=== PATIENT | female | born 1985 | race Caucasian/White ===

== ENCOUNTER 2016-10-20 10:33 | Emergency (ER) | payer BC ==
[2016-10-20 10:50] VITALS: BP 150/106
[2016-10-20] MEDS ORDERED: Sodium Chloride 0.9% 10 ML Syringe FLUSH PRN (11:17)
[2016-10-20] MEDS ORDERED: Ondansetron 4 MG/2 ML SDV IVPUSH ONE (11:17)
[2016-10-20] MEDS ORDERED: Sodium Chloride 0.9% 1,000 ML IV STA (11:17)
--- NOTE | 2016-10-20 12:49 | EDM.PDOC ---
ED HPI GENERAL MEDICAL PROBLEM - General Chief Complaint: General Stated Complaint: POSS. JAUNDICE- SENT BY CLINIC Time Seen by Provider: 10/20/16 10:53 Source of Information: Reports: Patient History Limitations: Reports: No Limitations - History of Present Illness INITIAL COMMENTS - FREE TEXT/NARRATIVE: The patient presents with jaundice. She has not been feeling well for about 2 weeks. She had no energy, slight cough, sore throat and maybe a fever. She was seen in the clinic on Friday and she was checked for strep. Strep was negative. They did not do mono at that time. She came back to the walk in clinic at [place] today because she noticed bright yellow urine, yellow stool and jaundice. They did labs and her liver enzymes were all elevated and her total bili. She was sent over here for further work up. She denies pain now. She has no headache, sore throat, chest pain, shortness of breath, abdominal pain, nausea or vomiting. She has no dysuria. She has no medical problems. Onset: Gradual Duration: Week(s): (2) Severity: Moderate Improves with: Reports: None Worsens with: Reports: None Associated Symptoms: Reports: No Other Symptoms - Related Data Allergies Allergy/AdvReac Type Severity Reaction Status Date / Time Penicillins Allergy Rash Verified 10/20/16 10:50 Home Meds: Home Meds Norgestimate-Ethinyl Estradiol [Tri-Linyah Tablet] 10/20/16 [History] Past Medical History - Past Health History Medical/Surgical History: Denies Medical/Surgical History Social & Family History - Tobacco Use Smoking Status *Q: Unknown Ever Smoked ED ROS GENERAL - Review of Systems Review Of Systems: See Below Constitutional: Reports: No Symptoms HEENT: Reports: No Symptoms Respiratory: Reports: No Symptoms Cardiovascular: Reports: No Symptoms Endocrine: Reports: No Symptoms GI/Abdominal: Reports: No Symptoms : Reports: No Symptoms Musculoskeletal: Reports: No Symptoms Skin: Reports: Jaundice ED EXAM, GENERAL - Physical Exam Exam: See Below Exam Limited By: No Limitations General Appearance: Alert, No Apparent Distress Eye Exam: Bilateral Eye: Other (slight scleral icterus) Ears: Normal External Exam Nose: Normal Inspection Throat/Mouth: Normal Inspection Head: Atraumatic, Normocephalic Neck: Normal Inspection Respiratory/Chest: No Respiratory Distress, Lungs Clear, Normal Breath Sounds Cardiovascular: Regular Rate, Rhythm, No Edema, No Murmur GI/Abdominal: Soft, Non-Tender, No Organomegaly, No Mass Back Exam: Normal Inspection Extremities: Normal Inspection Neurological: Alert, Oriented Course - Vital Signs Last Recorded V/S: Last Vital Signs Temp 98.5 F 10/20/16 10:47 Pulse 92 10/20/16 10:47 Resp 18 10/20/16 10:47 BP 150/106 H 10/20/16 10:47 Pulse Ox 98 10/20/16 10:47 - Orders/Labs/Meds Orders: Active Orders 24 hr Category Date Time Status Peripheral IV Care [RC] . DIRECTED Care 10/20/16 11:17 Active Abdomen Ltd [US] Stat Exams 10/20/16 11:18 Taken Sodium Chloride 0.9% [Saline Flush] Med 10/20/16 11:17 Active 10 ml FLUSH ASDIRECTED PRN ED Antiemetic Medication Reflex [OM.PC] Stat Oth 10/20/16 11:17 Ordered Peripheral IV Insertion Adult [OM.PC] Stat Oth 10/20/16 11:17 Ordered Medication Orders Sodium Chloride (Saline Flush) 10 ml FLUSH ASDIRECTED PRN PRN Reason: Keep Vein Open Last Admin: 10/20/16 11:51 Dose: 10 ml Labs: Laboratory Tests 10/20/16 Range/Units 11:30 Monoscreen Positive H (NEGATIVE) Meds: Medications Generic Name Dose Route Start Last Admin Trade Name Freq PRN Reason Stop Dose Admin Sodium Chloride 10 ml 10/20/16 11:17 10/20/16 11:51 Saline Flush FLUSH 10 ml ASDIRECTED PRN Administration Keep Vein Open Discontinued Medications Generic Name Dose Route Start Last Admin Trade Name Freq PRN Reason Stop Dose Admin Sodium Chloride 1,000 mls @ 1,000 mls/hr 10/20/16 11:17 10/20/16 11:47 Normal Saline IV 10/20/16 12:16 1,000 mls/hr .BOLUS STA Administration Ondansetron HCl 4 mg 10/20/16 11:17 10/20/16 11:52 Zofran IVPUSH 10/20/16 11:18 4 mg ONETIME ONE Administration - Re-Assessments/Exams Free Text/Narrative Re-Assessment/Exam: 10/20/16 12:54 I ordered an IV NS, mono and an US of her abdomen. Her WBC was elevated at 16.5. Her Hgb was normal at 14.8. Her Platelets were normal at 164. Her direct bili was high at 5.5. Her Alk Phos was elevated at 905. Her AST was elevated to 208. Her ALT was elevated at 461. Her total bili was elevated to 6.1. Her UA shows large amount of bilirubin. I am waiting for the US. 10/20/16 14:15 The US shows hepatomegaly at 17.3cm. Possible gallbladder polyp measuring 2cm. Smaller polyp measruing 1.1cm. Multiple periportal lymph nodes. Largest at the pancreatic head measures 18 X 6 X 18mm. She feels better. I will discharge her home with symptomatic treatment. I will have her follow up with [facility] this next week. Departure - Departure Time of Disposition: 14:20 Disposition: Home, Self-Care 01 Condition: good Clinical Impression: Mononucleosis, infectious, with hepatitis, Jaundice, Weakness generalized - Discharge Information Referrals: [facility] SUBSTATION MANAGER [ED Midlevel Provider] - 3 Days Forms: ED Department Discharge Additional Instructions: Drink plenty of fluids. Rest. Do not take tylenol for any pain. You can take motrin or aleve. Follow up with [facility] Jean or one of her partners in 3 days. Please return if you are worse. - My Orders Last 24 Hours: My Active Orders 10/20/16 11:17 Peripheral IV Care [RC] . DIRECTED Sodium Chloride 0.9% [Saline Flush] 10 ml FLUSH ASDIRECTED PRN ED Antiemetic Medication Reflex [OM.PC] Stat Peripheral IV Insertion Adult [OM.PC] Stat 10/20/16 11:18 Abdomen Ltd [US] Stat - Assessment/Plan Last 24 Hours: My Active Orders 10/20/16 11:17 Peripheral IV Care [RC] . DIRECTED Sodium Chloride 0.9% [Saline Flush] 10 ml FLUSH ASDIRECTED PRN ED Antiemetic Medication Reflex [OM.PC] Stat Peripheral IV Insertion Adult [OM.PC] Stat 10/20/16 11:18 Abdomen Ltd [US] Stat
--- NOTE | 2016-10-21 11:14 | US ---
Limited abdominal ultrasound: Multiple real-time images were obtained of the upper right abdomen. Liver shows no focal parenchymal abnormality. Right kidney shows no hydronephrosis or mass and has a length of 11.8 cm. Gallbladder is not well distended. Soft tissue abnormalities are seen within the gallbladder in 2 locations measuring 2.0 cm and 1.1 cm most likely representing gallbladder polyps. Pancreas appears within normal limits. Several slightly hypoechoic lymph nodes are seen within the periportal region measuring 1.8 cm. Impression: 1. Two soft tissue abnormalities within the gallbladder most likely due to large gallbladder polyps. No shadowing gallstones, gallbladder wall thickening or biliary duct dilatation is seen. 2. Several upper abdominal lymph nodes most likely representing old inflammatory enlargement. 3. No additional abnormality is seen. Note: Follow-up right upper quadrant abdominal ultrasound is recommended in 6 months with adequate fasting to further evaluate gallbladder findings for stability. Diagnostic code #9 Agree with preliminary report issued by [facility] ([facility] preliminary report dictated on 10/20/16, 2:47 PM Central Time)
== END 2016-10-20 14:35 | disposition home or self-care (01) ==
LOC: JD.ED 10:33
DX: B27.90 Infectious mononucleosis, unspecified without complication (principal); K75.9 Inflammatory liver disease, unspecified; R53.1 Weakness; Z88.0 Allergy status to penicillin
CPT/HCPCS: 36415; 76705; 86308; 96361; 96374; 99285; J2405; J7040; J7050; 99284

== ENCOUNTER 2023-12-01 18:08 | Emergency (ER) | payer BC ==
[2023-12-01] MEDS ORDERED: Sodium Chloride 0.9% 10 ML Syringe FLUSH PRN (18:35)
[2023-12-01 18:40] LABS: BASOPHILS ABSOLUTE AUTO 0.1 K/mm3 (0.0-0.2); BASOPHILS PERCENT AUTO 0.5 % (0.0-1.0); EOSINOPHILS ABSOLUTE AUTO 0.3 K/mm3 (0.0-0.4); EOSINOPHILS PERCENT AUTO 2.3 % (0.0-6.0); HEMATOCRIT 46.4 % (37.0-47.0); HEMOGLOBIN 15.5 gm/dl (12.0-16.0); IMMATURE GRAN ABSOLUTE AUTO 0.04 K/mm3 (0.00-0.05); IMMATURE GRAN PERCENT AUTO 0.3 % (0.0-0.4); LYMPHOCYTES ABSOLUTE AUTO 3.4 K/mm3 (1.0-4.8); MEAN CORPUSCULAR HEMOGLOBIN 30.2 pg (28.0-32.0); MEAN CORPUSCULAR HGB CONC 33.4 g/dl (32.0-36.0); MEAN CORPUSCULAR VOLUME 90.3 fl (83.0-99.0); MEAN PLATELET VOLUME 10.4 fl (9.4-12.3); MONOCYTES PERCENT AUTO 7.3 % (0.0-8.0); NEUTROPHILS ABSOLUTE AUTO 8.4 K/mm3 (1.8-7.7); NEUTROPHILS PERCENT AUTO 63.6 % (41.0-71.0); PLATELET COUNT,PLT 261 K/mm3 (150-400); RED BLOOD CELL COUNT 5.14 M/mm3 (4.10-5.30); WHITE BLOOD CELL COUNT,WBC 13.23 K/mm3 (3.9-11.3)
[2023-12-01 19:06] LABS: APPEARANCE,URINE CLEAR (Clear); BILIRUBIN,URINE NEGATIVE (Negative); COLOR,URINE LIGHT YELLOW (Yellow); GLUCOSE,URINE NEGATIVE (Negative); KETONES,URINE NEGATIVE (Negative); LEUKOCYTE ESTERASE,URINE NEGATIVE (Negative); NITRITE,URINE NEGATIVE (Negative); OCCULT BLOOD,URINE TRACE-INTACT (Negative); PROTEIN,URINE NEGATIVE (Negative); UROBILINOGEN,URINE 0.2 (0.2-1.0)
[2023-12-01 19:11] LABS: A/G RATIO 1.2 (1-2); ALBUMIN 3.9 g/dl (3.4-5.0); ANION GAP 16.3 (5-15); BILIRUBIN TOTAL 0.2 mg/dL (0.2-1.0); BUN/CREATININE RATIO 17.5 (14-18); CALCIUM 9.1 mg/dL (8.5-10.1); CREATININE 0.8 mg/dL (0.55-1.02); EST CRCL DRUG DOSING (CG) 81.53 mL/min; MAGNESIUM 2.1 mg/dL (1.8-2.4); PROTEIN TOTAL,TP 7.3 g/dl (6.4-8.2); TSH 1.501 uIU/mL (0.358-3.74)
[2023-12-01 19:12] LABS: POTASSIUM,K 3.3 mEq/L (3.5-5.1)
[2023-12-01 19:12] LABS: BACTERIA,URINE FEW /hpf (FEW); MUCUS,URINE NOT SEEN /hpf (FEW); SQUAMOUS EPITHELIAL CELLS,UR 0-5 /hpf (0-5); WBC,URINE 0-5 /hpf (0-5)
[2023-12-01 19:37] LABS: HEMOGLOBIN A1C 5.8 %
[2023-12-01] MEDS: Sodium Chloride 0.9% 1,000 ML IV STA (19:46)
[2023-12-01 19:52] LABS: CORONAVIRUS COVID-19 NAA NEGATIVE (NEGATIVE); INFLUENZA A NAA NEGATIVE (NEGATIVE); RESPIRATORY SYNCYTIAL VIR NAA NEGATIVE (NEGATIVE)
[2023-12-01 21:00] VITALS: BP 154/95; PULSE 72
== END 2023-12-01 21:00 | disposition home or self-care (01) ==
LOC: JD.ED 18:08
DX: I10 Essential (primary) hypertension (principal); Z88.0 Allergy status to penicillin; F17.210 Nicotine dependence, cigarettes, uncomplicated
CPT/HCPCS: 0241U; 36415; 80053; 81001; 82947; 83036; 83735; 84443; 85025; 93005; 96360; 99284; J7030; 93010